=== PATIENT | male | born 2000 | race Caucasian/White ===

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

== ENCOUNTER 2022-02-08 16:17 | Emergency (ER) | payer OTHER, SELFPAY ==
[2022-02-08 16:45] VITALS: BP 136/84; PULSE 74; RESP 20; TEMP 37; O2SAT 100; BMI 32.1
--- NOTE | 2022-02-08 17:02 | EXP.UTC ---
Discharge Plan Disposition Patient Disposition: Home, Self-Care Condition: Good Prescriptions Prescriptions: New prednisone 10 mg tablets,dose pack See Rx Instructions .ROUTE .COMPLEX Qty: 21 0RF Rx Instructions: 6 day 10 mg taper pack as directed on package start on 02/09/22 Referrals Follow up/Referrals: Gibran Coe MD [Primary Care Provider] - See instructions Activity Restrictions/Add. Instructions Additional Instructions/Restrictions: Over the counter Calamine lotion may help with itching Over the counter Benadryl for itching Oatmeal baths may help with drying the rash Return if needed Start oral steriod pack on 02/09/22 Clinical Impressions Clinical Impression: Poison cliff dermatitis Instructions Patient Instructions: DI for Poison Cliff Allergy, Poison [place], Poison [place], Poison [place] Discharge ED Provider: Brittani Watson [facility] [place] General Stated complaint: poss rash on arms Mode of Arrival: Ambulatory Source of Information: Patient Limitations: No Limitations Time Seen by Provider: 02/08/22 17:02 Description of Symptoms (Recalled from Triage Doc. by RN): PATIENT C/O POISON CLIFF TO LEFT ARM, BACK AND FACE SINCE TUESDAY HEENT Symptoms (Recalled from RN notes): No Resp Symptoms (Recalled from RN notes): No Skin Symptoms (Recalled from RN notes): Yes MS Symptoms (Recalled from RN notes): No Functional Status (Recalled from RN notes): WNL History of Present Illness Provider Complaint: Patient states that he noticed he was starting to break out in poison cliff on Tuesday States that he has it on his left arm, face, side and back States that it has continued to spread and noticed it was on his right eyelid so he came in to get a shot to try to help clear it up Related Data Previous Rx's Medication Instructions Recorded prednisone 10 mg tablets in a dose See Rx Instructions PO .COMPLEX 02/08/22 pack #21 tabs Allergies Allergy/AdvReac Type Severity Reaction Status Date / Time No Known Allergies Allergy Verified 06/28/19 14:49 Worker's Comp Is this a Worker's Comp case?: No [facility] Medical History (Updated 02/08/22 @ 17:14 by Brittani Watson APRN) Migraine Surgical History (Updated 02/08/22 @ 17:00 by Chikis Alfaro RN) History of tonsillectomy Social History (Updated 02/08/22 @ 17:01 by Chikis Alfaro RN) Smoking Status: Never smoker second hand exposure: No alcohol intake: never current occupational status: other Travel in the last 8 weeks: None household members: family housing: house ROS Obtained: Yes All systems reviewed & no additional complaints except as documented and Yes Systems reviewed as appropriate & no additional complaints except as documented Eyes Eyes: Reports system reviewed and no additional complaints, except as documented and Reports as per HPI ENT Ears, Nose, Mouth, and Throat: Reports system reviewed and no additional complaints, except as documented and Reports as per HPI Musculoskeletal Musculoskeletal: Reports system reviewed and no additional complaints, except as documented and Reports as per HPI Integumentary/Breasts Skin/Breast: Reports system reviewed and no additional complaints, except as documented, Reports as per HPI, Reports pruritus and Reports rash Physical Exam General General appearance: alert and in no apparent distress Respiratory Respiratory exam: Present normal lung sounds bilaterally; Absent respiratory distress or wheezes Cardiovascular Cardiovascular exam: Present regular rate and normal rhythm Neurological Exam Neurological exam: Present alert, oriented X3 and normal gait Skin Skin exam: Present rash (fluid filled linear rash like that commonly seen with poison cliff on face, arm and back) Medical Decision Making Maciel Inquiry Pt receiving controlled substance: No Maciel was queried for this patient: No Vital Signs: 02/08/22 16:45 Temperature 98.6 F Temperature Source Oral Pulse Rate [Ri
[2022-02-08 17:34] VITALS: BP 136/84; PULSE 74; RESP 20; TEMP 37; O2SAT 100
== END 2022-02-08 17:36 | disposition home or self-care (01) ==
PROVIDERS: Emergency Provider Nurse Practitioner; PCP Family Medicine
DX: L23.7 Allergic contact dermatitis due to plants, except food (principal)
CPT/HCPCS: 96372; 99212; G0463

== ENCOUNTER 2022-07-26 09:37 | Emergency (ER) | payer OTHER, SELFPAY ==
[2022-07-26 10:25] VITALS: BP 137/85; PULSE 72; RESP 21; TEMP 36.8; O2SAT 96; BMI 34.1
[2022-07-26 10:43] LABS: UTC Strep Screen (Rapid) Positive (Negative)
--- NOTE | 2022-07-26 10:48 | EXP.UTC ---
Discharge Plan Disposition Patient Disposition: Home, Self-Care Condition: Good Prescriptions Prescriptions: New penicillin V potassium 500 mg tablet 500 mg PO BID Qty: 20 0RF Referrals Follow up/Referrals: Gibran Coe MD [Primary Care Provider] - See instructions Activity Restrictions/Add. Instructions Additional Instructions/Restrictions: *Monitor Temp, Over the counter Motrin or Tylenol as directed/as needed Tylenol every 4 hours and Motrin every 6 hours (as long as your family doctor has told you that you can take it) for fever or pain. and straight to ER if unable to lower temp less than 101.0 after medication given *Warm salt water gargles may help to soothe the throat *Throat Lozenges? *Warm fluids like tea with honey may help to soothe the throat? *Sleep elevated *Humidifier/Vaporizer *If you did not take Penicillin shot or was unable to, start taking antibiotic immediately and make sure that you take it for the FULL length of time although you should start to feel better in 24-48 hours *change toothbrush and toothpaste 24-48 hours after starting to take antibiotics so you do not reinfect yourself Monitor Temp. Tylenol and/or Ibuprofen as needed. ER if fever is no less than 101 despite alternating Tylenol and Ibuprofen * Encourage fluids, water, Gatorade, powerade, pedialyte if /toddler/or child *Cold fluids, popsicles and ice cream may feel good on his throat Follow up IMMEDIATELY for new or worsening symptoms or no Noticeable improvement over the next 48-72 hours. 911 for difficulty breathing or swallowing Clinical Impressions Clinical Impression: Strep throat Stand Alone Forms Stand Alone Forms: Work/School Release Instructions Patient Instructions: DI for Strep Throat Discharge ED Provider[place] Brittani [place] [facility] [place] General Stated complaint: cough,drainage,sore throat Mode of Arrival: Ambulatory Source of Information: Patient Limitations: No Limitations Time Seen by Provider: 07/26/22 10:56 Description of Symptoms (Recalled from Triage Doc. by RN): PATIENT C/O CONGESTION AND SORE THROAT SINCE TUESDAY HEENT Symptoms (Recalled from RN notes): Yes Resp Symptoms (Recalled from RN notes): No Skin Symptoms (Recalled from RN notes): No MS Symptoms (Recalled from RN notes): No Functional Status (Recalled from RN notes): WNL History of Present Illness Provider Complaint: Patient state that he has been having nasal congestion and sore throat since Tuesday that has continued to get worse States that he was taking OTC medications but nothing was helping Related Data Previous Rx's Medication Instructions Recorded penicillin V potassium 500 mg 500 mg PO BID #20 tabs 07/26/22 tablet Allergies Allergy/AdvReac Type Severity Reaction Status Date / Time No Known Allergies Allergy Verified 06/28/19 14:49 Worker's Comp Is this a Worker's Comp case?: No [facility] Disclaimer: The information contained in this section may have been updated after the patient was seen, as this information can be updated by other users. Medical History (Updated 07/26/22 @ 10:50 by Brittani Watson APRN) Migraine Surgical History (Updated 02/08/22 @ 17:00 by Chikis Alfaro RN) History of tonsillectomy Social History (Updated 02/08/22 @ 17:01 by Chikis Alfaro RN) Smoking Status: Never smoker second hand exposure: No alcohol intake: never current occupational status: other Travel in the last 8 weeks: None household members: family housing: house ROS Obtained: Yes All systems reviewed & no additional complaints except as documented and Yes Systems reviewed as appropriate & no additional complaints except as documented Constitutional Constitutional: Reports system reviewed and no additional complaints, except as documented and Reports as per HPI ENT Ears, Nose, Mouth, and Throat: Reports system reviewed and no additional complaints, except as
[2022-07-26 10:58] VITALS: BP 137/85; PULSE 72; RESP 21; TEMP 36.8; O2SAT 96
== END 2022-07-26 11:01 | disposition home or self-care (01) ==
PROVIDERS: Emergency Provider Nurse Practitioner; PCP Family Medicine
DX: J02.0 Streptococcal pharyngitis (principal)
CPT/HCPCS: 87880; 99212; 99213; G0463

== ENCOUNTER 2022-08-18 15:23 | Emergency (ER) | payer OTHER, SELFPAY ==
[2022-08-18 15:40] VITALS: BP 125/76; PULSE 63; RESP 14; TEMP 37.1; O2SAT 98; BMI 34.1
--- NOTE | 2022-08-18 15:47 | EXP.UTC ---
Discharge Plan Disposition Patient Disposition: Home, Self-Care Condition: Good Prescriptions Prescriptions: No Action penicillin V potassium 500 mg tablet 500 mg PO BID Qty: 20 0RF Referrals Follow up/Referrals: Gibran Coe MD [Primary Care Provider] - See instructions Activity Restrictions/Add. Instructions Additional Instructions/Restrictions: *Monitor Temp, Over the counter Motrin or Tylenol as directed/as needed Tylenol every 4 hours and Motrin every 6 hours (as long as your family doctor has told you that you can take it) for fever or pain. and straight to ER if unable to lower temp less than 101.0 after medication given *Warm salt water gargles may help to soothe the throat *Throat Lozenges? *Warm fluids like tea with honey may help to soothe the throat? *Sleep elevated *Humidifier/Vaporizer Your throat swab was sent for culture. Those results are typically sent to your primary care. Be sure to follow up in 2-3 days with your family doctor/primary care physician if no improvement so they can review those result and treat if necessary. If you don?t have a primary care doctor, I recommend you get one but in the mean time, you will have to return to a walk in clinic Follow up IMMEDIATELY for new or worsening symptoms or no Noticeable improvement over the next 48-72 hours. 911 for difficulty breathing or swallowing Clinical Impressions Clinical Impression: Sore throat (viral) Stand Alone Forms Stand Alone Forms: Work/School Release Instructions Patient Instructions: Sore Throat Discharge ED Provider: Brittani Watson [facility] General Stated complaint: sore throat congestion Time Seen by Provider: 08/18/22 15:47 History of Present Illness Provider Complaint: Patient states that he has been having sore throat and nasal congestion States that feels like it does when he had strep throat recently States that he started having sore throat and realized he had forgot to dispose of his tooth brush and thinks he may have strep throat again Related Data Previous Rx's Medication Instructions Recorded penicillin V potassium 500 mg 500 mg PO BID #20 tabs 07/26/22 tablet Allergies Allergy/AdvReac Type Severity Reaction Status Date / Time No Known Allergies Allergy Verified 06/28/19 14:49 [facility] Disclaimer: The information contained in this section may have been updated after the patient was seen, as this information can be updated by other users. Medical History (Updated 08/18/22 @ 16:09 by Brittani Watson APRN) Migraine Surgical History (Updated 02/08/22 @ 17:00 by Chikis Alfaro RN) History of tonsillectomy Social History (Updated 02/08/22 @ 17:01 by Chikis Alfaro RN) Smoking Status: Never smoker second hand exposure: No alcohol intake: never current occupational status: other Travel in the last 8 weeks: None household members: family housing: house ROS Obtained: Yes All systems reviewed & no additional complaints except as documented and Yes Systems reviewed as appropriate & no additional complaints except as documented Constitutional Constitutional: Reports system reviewed and no additional complaints, except as documented and Reports as per HPI Eyes Eyes: Reports system reviewed and no additional complaints, except as documented and Reports as per HPI ENT Ears, Nose, Mouth, and Throat: Reports system reviewed and no additional complaints, except as documented, Reports as per HPI, Reports nasal congestion, Reports nasal discharge and Reports sore throat Physical Exam General General appearance: alert and in no apparent distress Expanded ENT Exam Throat exam: Present other (Pharyngeal erythema noted with PND) Respiratory Respiratory exam: Present normal lung sounds bilaterally; Absent respiratory distress or wheezes Cardiovascular Cardiovascular exam: Present regular rate, normal rhythm and normal heart sounds Abdominal
[2022-08-18 15:53] VITALS: BP 125/76; PULSE 63; RESP 14; TEMP 37.1; O2SAT 98
[2022-08-19 20:27] LABS: UTC Strep Screen (Rapid) Negative (Negative)
== END 2022-08-18 16:12 | disposition home or self-care (01) ==
PROVIDERS: Emergency Provider Nurse Practitioner; PCP Family Medicine
DX: R07.0 Pain in throat (principal); R09.81 Nasal congestion
CPT/HCPCS: 87880; 99212; G0463

== ENCOUNTER 2023-01-01 11:31 | Emergency (ER) | payer OTHER, SELFPAY ==
[2023-01-01 11:35] VITALS: BP 134/92; PULSE 78; RESP 18; TEMP 36.8; O2SAT 98; BMI 30.9
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
[2023-01-01 12:19] VITALS: BP 134/92; PULSE 78; RESP 18; TEMP 36.8; O2SAT 98
== END 2023-01-01 12:33 | disposition home or self-care (01) ==
PROVIDERS: Emergency Provider Nurse Practitioner Family; PCP Family Medicine
DX: T22.011A Burn of unspecified degree of right forearm, initial encounter (principal); T23.001A Burn of unspecified degree of right hand, unspecified site, initial encounter; X08.8XXA Exposure to other specified smoke, fire and flames, initial encounter
CPT/HCPCS: 99212; 99214; G0463

== ENCOUNTER 2023-03-01 15:10 | Emergency (ER) | payer OTHER, SELFPAY ==
[2023-03-01 15:10] VITALS: BP 125/69; PULSE 62; RESP 18; TEMP 36.9; O2SAT 99; BMI 31.8
--- NOTE | 2023-03-01 15:20 | EXP.UTC ---
Discharge Plan Disposition Patient Disposition: Home, Self-Care Condition: Good Prescriptions Prescriptions: New prednisone [prednisone] 20 mg tablet 20 mg PO BID 3 Days Qty: 6 0RF amoxicillin [amoxicillin] 875 mg tablet 875 mg PO Q12H Qty: 20 0RF dihpanyrqgxqqyr-[id number]-TK [Bromfed DM] 2-30-10 mg/5 mL Syrup 5 ml PO Q6H PRN (Reason: Cough) Qty: 240 0RF Referrals Follow up/Referrals: Gibran Coe MD [Primary Care Provider] - See instructions Activity Restrictions/Add. Instructions Additional Instructions/Restrictions: Drink plenty of fluids. Take tylenol or ibuprofen for pain or fever. Take the medications as directed. Follow up with your regular doctor. GO TO THE ER FOR ANY WORSENING SYMPTOMS Clinical Impressions Clinical Impression: Pharyngitis Instructions Patient Instructions: Sore Throat, DI for Pharyngitis/Tonsillopharyngitis -- Adult Discharge ED Provider: Sami De La O [facility] General Stated complaint: strep exposed, sore throat Time Seen by Provider: 03/01/23 15:20 History of Present Illness Provider Complaint: He states that for the past 2 days he has had sore throat and sinus congestion. He denies fever/chills/body aches. Related Data Previous Rx's Medication Instructions Recorded amoxicillin 875 mg tablet 875 mg PO Q12H #20 tabs 03/01/23 iwnjnzijujcwodm-isxhpxghthvxuwk-MU 5 ml PO Q6H PRN Cough #240 mL 03/01/23 2 mg-30 mg-10 mg/5 mL oral syrup (Bromfed DM) prednisone 20 mg tablet 20 mg PO BID 3 days #6 tabs 03/01/23 Allergies Allergy/AdvReac Type Severity Reaction Status Date / Time No Known Allergies Allergy Verified 03/01/23 15:23 [facility] Disclaimer: The information contained in this section may have been updated after the patient was seen, as this information can be updated by other users. Medical History , AIRCRAFT STRUCTURAL REPAIR MECHANIC) Migraine Surgical History , AIRCRAFT STRUCTURAL REPAIR MECHANIC) History of tonsillectomy Social History Smoking Status: Never smoker second hand exposure: No alcohol intake: never current occupational status: other Travel in the last 8 weeks: None household members: family housing: house ROS Obtained: Yes All systems reviewed & no additional complaints except as documented Constitutional Constitutional: Reports chills and Reports fever(s) Eyes Eyes: Denies eye discharge ENT Ears, Nose, Mouth, and Throat: Reports as per HPI Cardiovascular Cardiovascular: Denies chest pain Respiratory Respiratory: Denies chest congestion and Reports cough Gastrointestinal Gastrointestingal: Reports nausea; Denies abdominal pain, constipation, cramping, diarrhea or vomiting Musculoskeletal Musculoskeletal: Denies arthralgias Integumentary/Breasts Skin/Breast: Denies rash Neurologic Neurologic: Denies paresthesias Physical Exam General General appearance: alert and in no apparent distress Head Head exam: atraumatic, normocephalic and normal inspection Eye Eye exam: Present normal appearance, PERRL and EOMI ENT ENT exam: Present mucous membranes moist and normal external ear exam Expanded ENT Exam TM/Canal exam: Bilateral TM: erythema and bulging Nose exam: Absent sinus tenderness Mouth exam: Present normal external inspection; Absent drooling Teeth exam: Present normal inspection Throat exam: Present tonsillar erythema, tonsillomegaly and tonsillar exudate Neck Neck exam: Present normal inspection, full ROM and trachea midline; Absent tenderness, meningismus or lymphadenopathy Chest Chest inspection: Present normal inspection and symmetric chest wall rise; Absent tenderness Respiratory Respiratory exam: Present normal lung sounds bilaterally; Absent respiratory distress, wheezes or stridor Cardiovascular Cardiovascular exam: Present regular rate and normal rhythm; Absent systolic murmur o
[2023-03-01 15:30] LABS: UTC Strep Screen (Rapid) Negative (Negative)
[2023-03-01 15:57] VITALS: BP 125/69; PULSE 62; RESP 18; TEMP 36.9; O2SAT 99
== END 2023-03-01 15:57 | disposition home or self-care (01) ==
PROVIDERS: Emergency Provider Nurse Practitioner Family; PCP Family Medicine
DX: J02.9 Acute pharyngitis, unspecified (principal); R09.81 Nasal congestion
CPT/HCPCS: 87635; 87880; 99212; 99214; G0463

== ENCOUNTER 2023-05-17 10:11 | Emergency (ER) | payer BC, SELFPAY ==
[2023-05-17 11:35] VITALS: BP 143/81; PULSE 109; RESP 18; TEMP 37.1; O2SAT 97; BMI 32.0
--- NOTE | 2023-05-17 11:47 | EXP.UTC ---
Discharge Plan Disposition Patient Disposition: Home, Self-Care Condition: Good Prescriptions Prescriptions: New oseltamivir [Tamiflu] 75 mg capsule 75 mg PO Q12H 5 Days Qty: 10 0RF Referrals Follow up/Referrals: Nitin Reyes MD [Primary Care Provider] - See instructions Activity Restrictions/Add. Instructions Additional Instructions/Restrictions: Start Tamiflu today if you are going to take it. Discussed risk and possible benefits. Lots of rest Increase Fluids water, Gatorade, powerade, pedialyte,if /toddler/child Alternate Tylenol and / or ibuprofen as discussed for fever, aches, chills Follow up IMMEDIATELY with your family doctor for new or worsening Symptoms OR no noticeable improvement over the next 48-72 hours, 911 for difficulty or breathing You or your child area contagious until no fever, aches, chills for 24 hours with medication for symptoms Help Prevent the spread of influenza: ?Wash your hands often. Use soap and water. Wash your hands after you use the bathroom, change a child's diapers, or sneeze. Wash your hands before you prepare or eat food. Use gel hand cleanser that has 60% alcohol, when soap and water are not available. Do not touch your eyes, nose, or mouth unless you have washed your hands first. Cover your mouth when you sneeze or cough. Cough into a tissue or the bend of your arm. If you use a tissue, throw it away immediately and wash your hands. Clean shared items with a germ-killing coke still cleaner. Clean table surfaces, doorknobs, and light switches. Do not share towels, silverware, and dishes with people who are sick. Wash bed sheets, towels, silverware, and dishes with soap and water. Wear a mask over your mouth and nose if you are sick. The face mask may help protect others from becoming infected with the flu. Wear the mask when in common areas of your home or if you seek care with a healthcare provider. Stay away from others if you are sick. Stay at home until 24 hours after your fever and symptoms are gone. Clinical Impressions Clinical Impression: Influenza Stand Alone Forms Stand Alone Forms: Work/School Release Instructions Patient Instructions: DI for Influenza -- Adult, Influenza Discharge ED Provider: Brittani Watson [facility] [place] General Stated complaint: cough, nausea wants flu test Mode of Arrival: Ambulatory Source of Information: Patient Limitations: No Limitations Time Seen by Provider: 05/17/23 11:47 Description of Symptoms (Recalled from Triage Doc. by RN): sore throat, fever, chills, and congestion HEENT Symptoms (Recalled from RN notes): Yes Resp Symptoms (Recalled from RN notes): No Skin Symptoms (Recalled from RN notes): No MS Symptoms (Recalled from RN notes): No Functional Status (Recalled from RN notes): n/a History of Present Illness Provider Complaint: Patient states that he hasnt felt well for several days States that he has been having sore throat, sinus congestion, drainage, body aches and chills States that he has several friends that is ill right now so today he came in to get checked Related Data Previous Rx's Medication Instructions Recorded oseltamivir 75 mg capsule (Tamiflu) 75 mg PO Q12H 5 days #10 caps 05/17/23 Allergies Allergy/AdvReac Type Severity Reaction Status Date / Time No Known Allergies Allergy Verified 05/17/23 11:46 Worker's Comp Is this a Worker's Comp case?: No [facility] Disclaimer: The information contained in this section may have been updated after the patient was seen, as this information can be updated by other users. Medical History , REST ROOM ATTENDANT) Migraine Surgical History , REST ROOM ATTENDANT) History of tonsillectomy Social History (Reviewed 05/17/23 @ 1
[2023-05-17 11:51] LABS: UTC Influenza A Antigen Positive (Negative); UTC Influenza B Antigen Negative (Negative)
[2023-05-17 11:52] LABS: UTC Strep Screen (Rapid) Negative (Negative)
[2023-05-17 12:02] VITALS: BP 143/81; PULSE 109; RESP 18; TEMP 37.1; O2SAT 97
== END 2023-05-17 12:02 | disposition home or self-care (01) ==
PROVIDERS: Emergency Provider Nurse Practitioner; PCP Internal Medicine Adolescent Medicine
DX: J10.1 Influenza due to other identified influenza virus with other respiratory manifestations (principal); R11.0 Nausea; R51.9 Headache, unspecified; R05.9 Cough, unspecified; R50.9 Fever, unspecified; R07.0 Pain in throat; R09.81 Nasal congestion; M79.18 Myalgia, other site
CPT/HCPCS: 87804; 87880; 99212; 99214; G0463

== ENCOUNTER 2023-09-12 12:42 | Outpatient (CLI) | payer BC, SELFPAY ==
--- NOTE | 2023-09-12 12:46 | US_ITS ---
FINAL REPORT TECHNIQUE: Ultrasound images of the testicles were obtained bilaterally. Color Doppler images were obtained. CLINICAL HISTORY: RT TESTICULAR PAIN,LT TESTICULAR PAIN FINDINGS: The testicles are normal in size and echotexture bilaterally. Arterial flow is identified bilaterally. No intratesticular masses are identified. IMPRESSION: No evidence of testicular mass or torsion. Reviewed, Interpreted and Dictated by Tacos Stark MD Transcribed by Carlotta Shell Authenticated and [facility]
[2023-09-12 14:03] LABS: Basophils # 0.1 K/mm3 (0-0.2); Basophils % 1.1 % (0.1-2.0); Eosinophils # 0.1 K/mm3 (0.0-0.4); Eosinophils % 1.1 % (0.1-12.0); Hematocrit 48.1 % (42.0-52.0); Hemoglobin 16.1 g/dL (14.1-18.0); Lymphocytes # 2.1 K/mm3 (0.7-4.5); Lymphocytes % 34.7 % (10-50); Mean Corpuscular HGB Conc 33.5 g/dL (31.8-35.4); Mean Corpuscular Volume 89.7 fl (80-94); Mean Platelet Volume 7.6 fl (7.4-10.4); Monocytes # 0.4 K/mm3 (0.1-1.0); Neutrophils # 3.5 K/mm3 (1.8-7.8); Platelet Count 344 K/mm3 (142-424); Red Blood Count 5.36 M/mm3 (4.60-6.20); Red Cell Distribution Width 12.8 % (11.5-17.5); White Blood Count 6.2 K/mm3 (4.8-10.8)
[2023-09-12 14:42] LABS: Chloride 103 mmol/L (98-107); Potassium 4.2 mmoL/L (3.5-5.1); Sodium 141 mmol/L (136-145)
[2023-09-12 14:45] LABS: Alanine Aminotransferase 40 U/L (12-78); Albumin Level 4.8 g/dl (3.5-5.0); Albumin/Globulin Ratio 1.8 (1.1-1.8); Alkaline Phosphatase 46 U/L (38-126); Anion Gap 13.2 mEq/L (5-15); Aspartate Amino Transferase 35 U/L (17-59); Bilirubin,Total 2.4 mg/dl (0.2-1.3); Blood Urea Nitrogen 18 mg/dl (9-20); Carbon Dioxide 29 mmol/L (22.0-30.0); Estimated Glomerular Filt Rate 94 ml/min (>60); GFR (African American) 114 ML/MIN (>60); Globulin 2.7 g/dL (1.3-3.2); Total Protein,Serum 7.5 g/dl (6.3-8.2)
[2023-09-12 14:46] LABS: Calcium 10.1 mg/dl (8.4-10.2); Glucose 93 mg/dl (74-100)
[2023-09-12 15:15] LABS: Thyroid Stimulating Hormone 2.25 uIU/mL (0.465-4.68)
[2023-09-12 15:49] LABS: Prostate Specific Ag Screen 0.6 ng/ml (0.0-4.0)
[2023-09-13 09:04] LABS: Testosterone,Total 301 ng/dL (264-916)
== END 2023-09-12 23:59 | disposition home or self-care (01) ==
LOC: RAD 12:43
PROVIDERS: PCP Nurse Practitioner Family; Visit Provider Nurse Practitioner Family
DX: N50.811 Right testicular pain (principal); N50.812 Left testicular pain; R68.82 Decreased libido; Z12.5 Encounter for screening for malignant neoplasm of prostate
CPT/HCPCS: 36415; 76870; 80053; 84403; 84443; 85025; G0103

== ENCOUNTER 2023-09-21 09:06 | Outpatient (CLI) | payer BC, SELFPAY ==
--- NOTE | 2023-09-21 09:10 | US_ITS ---
FINAL REPORT CLINICAL HISTORY: HYPERBILIRUBINEMIA FINDINGS: RIGHT UPPER QUADRANT ULTRASOUND Sonographic images of the right upper quadrant were obtained. Exam is suboptimal. The pancreas is partially obscured.The liver has an unremarkable appearance.The gallbladder appears normal without evidence of gallstones. The gallbladder is incompletely distended. There is a questionable tiny cyst adjacent to the gallbladder. The common duct is normal. Limited images of the right kidney are normal. IMPRESSION: No acute process. Reviewed, Interpreted and Dictated by Tacos Stark MD Transcribed by Erika Murphy Authenticated and . [facility]
== END 2023-09-21 23:59 | disposition home or self-care (01) ==
PROVIDERS: PCP Nurse Practitioner Family; Visit Provider Nurse Practitioner Family
DX: E80.6 Other disorders of bilirubin metabolism (principal)
CPT/HCPCS: 76705